=== PATIENT | male | born 1955 | race Caucasian/White ===

== ENCOUNTER → 2018-05-01 04:01 | Outpatient (CLI) | payer MEDICARE, SELFPAY ==
[2018-05-01 07:36] LABS: HCT 49.5 % (40.0-50.0); HGB 17.6 g/dL (13.5-17.5); Mean Corp. HGB Concentration 35.6 g/dL (32.0-36.0); Mean Corpuscular Hemoglobin 33.3 pg (27.0-33.0); Mean Corpuscular Volume 93.6 fL (80-95); Mean Platelet Volume 9.1 fL (8.0-11.0); Platelet Count 238 x1000/uL (130-400); RBC 5.29 m/cumm (4.50-6.00); RBC Distribution Width 12.7 % (11.8-14.1); White Blood Cell Count 4.59 k/cumm (4.4-10.8)
[2018-05-01 09:15] LABS: CREATININE 1.25 mg/dL (0.70-1.30); Cholesterol 198 mg/dL (50-200); Estimated GFR 58.92 (mL/min/1.73m2); Glucose 107 mg/dL (70-100); HDL Cholesterol 64 mg/dL (40-60); LDL CHOLESTEROL 112 mg/dL (<100); Potassium 5.2 mmol/L (3.5-5.1); Triglyceride 108 mg/dL (30-150)
== END ==
PROVIDERS: PCP Family Medicine; Visit Provider Family Medicine
DX: E74.39 Other disorders of intestinal carbohydrate absorption (principal); I10 Essential (primary) hypertension; D75.1 Secondary polycythemia; Z13.6 Encounter for screening for cardiovascular disorders
CPT/HCPCS: 36415; 80061; 82947; 83721; 85027; 82565; 84132

== ENCOUNTER 2018-06-05 02:27 | Outpatient (CLI) | payer MEDICARE, SELFPAY ==
[2018-06-05 10:19] LABS: Potassium 4.5 mmol/L (3.5-5.1)
[2018-06-06 14:12] LABS: Glucose 112 mg/dL (70-100)
== END 2018-06-05 02:47 ==
PROVIDERS: PCP Family Medicine; Visit Provider Family Medicine
DX: E87.5 Hyperkalemia (principal); E74.39 Other disorders of intestinal carbohydrate absorption
CPT/HCPCS: 36415; 82947; 84132

== ENCOUNTER 2018-12-02 14:09 | Outpatient (CLI) | payer MEDICARE, SELFPAY ==
[2018-12-02 14:47] LABS: Glucose 108 mg/dL (70-100)
[2018-12-02 14:55] LABS: Hemoglobin A1C 5.5 % (4.5-6.2)
== END 2018-12-02 14:29 ==
PROVIDERS: PCP Family Medicine; Visit Provider Family Medicine
DX: E74.39 Other disorders of intestinal carbohydrate absorption (principal); R73.01 Impaired fasting glucose
CPT/HCPCS: 36415; 82947; 83036

== ENCOUNTER 2019-03-22 00:33 | Outpatient (CLI) | payer MEDICARE, SELFPAY ==
[2019-03-25 12:53] LABS: Testosterone, Free 1.97 ng/dL (3.67-13.9); Testosterone, Total 141 ng/dL (240-950)
== END 2019-03-22 00:53 ==
PROVIDERS: PCP Family Medicine; Visit Provider Family Medicine
DX: R53.83 Other fatigue (principal)
CPT/HCPCS: 36415; 84402; 84403

== ENCOUNTER 2019-03-24 18:05 | Inpatient (IN) | payer MEDICARE, SELFPAY ==
[2019-03-24 18:11] VITALS: BP 130/85; PULSE 100; RESP 16; TEMP 36.7; O2SAT 95
--- NOTE | 2019-03-24 18:17 | DI.CT_ITS ---
SYMPTOM/DIAGNOSIS: LLQ PAIN, DARK TARRY STOOLS ABDOMEN AND PELVIC CT: The study was carried out with intravenous administration of 100 cc's of Omnipaque 350. The liver is normal. The gallbladder is intact. There are no stones or ductal dilatation. The pancreas, spleen and adrenals and kidneys are normal. There are a few scattered diverticula in the left colon. A focal area of wall thickening over a length of approximately 4 cm. is noted at the junction of the distal descending and sigmoid colon. A large amount of inflammatory reaction with indistinctness of the wall and colon is identified in this area. There is some free fluid extending into the left lower quadrant but there is nothing to suggest an abscess. There is no evidence of free air. The bladder is unremarkable. The reproductive organs are unremarkable save for slight enlargement of the prostate. There is no evidence of a mass or lymphadenopathy. No acute bony abnormality is seen. The soft tissues are unremarkable. SUMMARY: Findings consistent with diverticulitis involving the distal descending and sigmoid colon. There is no evidence of an abscess or perforation.
--- NOTE | 2019-03-24 18:21 | ED.GENADUL_ITS ---
Discharge Plan Disposition Patient Disposition: [facility] INPATIENT Condition: Stable Discharge Details Chief Complaint: Abd Prob Clinical Impression: Diverticulitis Admit Date/Time: 03/24/19 19:55 Admit Provider: Florencio Mayo Attending Provider: Florencio Mayo Primary Care Provider: Armond Hyatt ED Provider: Todd Rasmussen Discharge Data Discharge Date/Time-TO BE ENTERED AT DEPARTURE: 03/24/19 20:32 Medical Decision Making 63-year-old male with 2 to 3 days of severe left lower quadrant abdominal pain, with a mild component that has been lasting for the last 1 to 2 months. Exam demonstrates significant left lower quadrant pain. CT scan shows moderately severe acute diverticulitis. Without evidence of abscess or extraluminal air per virtual radiology. We have put in for Cipro and Flagyl. I discussed the case with Dr. Mayo, he agrees with the assessment and plan. The patient will be admitted for further antibiotic. I have extensively reviewed the treatment plan with the patient. I have addressed all patient concerns at this time. I have also discussed the plan with the admitting physician and they agree with the current assessment and plan and have agreed to assume responsibility for the patient. All parties demonstrate verbal understanding and agreement with our assessment and plan at this time. FINDINGS: Liver: Normal. No mass. Gallbladder and bile ducts: Normal. No calcified stones. No ductal dilation. Pancreas: Normal. No ductal dilation. Spleen: Normal. No splenomegaly. Adrenals: Normal. No mass. Kidneys and ureters: Normal. No hydronephrosis. Stomach and bowel: There are several diverticula in the left colon. There is focal wall thickening over a length of 4 cm at the junction of the descending and sigmoid colon. There is a large amount of inflammatory reaction with indistinctness of the wall of the colon in this area . there is tiny amount of free fluid extending into the left lower quadrant but no well-defined fluid collection to suggest an abscess. There is no distal extraluminal air. Vasculature: Normal. No abdominal aortic aneurysm. Lymph nodes: Normal. No enlarged lymph nodes. Bladder: Unremarkable as visualized. Reproductive: There is minimal enlargement of the prostate gland. Bones/joints: There are severe degenerative changes of facet joints the lower lumbar spine special L5-S1. There moderate degenerative changes lumbar spine most prominent L5-S1. There is mild spondylosis lower thoracic spine. Soft tissues: Unremarkable. IMPRESSION: Moderately severe acute diverticulitis at the junction of the descending and sigmoid colon without evidence of abscess or distal extraluminal air. Dictated and Authenticated by: Gregory Magaña MD. Ordering:ABISAI Brooks MD HPI General Date/Time Provider Initiated Documentation: 03/24/19 18:15 . HPI Narrative: This is a 63-year-old male with a past medical history of umbilical hernia repair who presents today for evaluation of left lower quadrant abdominal pain. Patient states that he has had mild left lower quadrant abdominal pain for the last 1 to 2 months, however over the last 1 to 2 days he has had notable significant worsening of his pain. Pain is worse with movement, palpation, walking, or even the bumps on the road. He denies fever or chills. He has not eaten anything over the last 24 hours secondary to lack of appetite. He does have nausea but denies any vomiting. He does admit to slightly darker stool than normal, but denies any tarry stool. He has no other complaints at this time. No other modifying factors. No other significant past surgical history. No IV or illicit drug use or pertinent family history. Related Data Home Medications Medication Instructions Recorded Confirmed cholecalciferol (vitamin D3) 1,000 unit PO DAILY 04/01/15 03/24/19 cyanocobalamin (vitamin B-12) 500 mcg PO DAILY 04/01/15 03/24/19 [Vitamin B-12] [id number] [One 1 ea PO DAILY 04/01/15 03/24/19 Daily For Men 50+ Adv Tab] aspirin [Aspir 81] 81 mg PO DAILY 04/17/15 03/24/19 glucosamine sulfate 2KCl 1 tab PO DAILY 11/28/16 03/24/19 indomethacin 50 mg PO tid prn #30 tab-cap 09/06/17 03/24/19 calcium carbonate [Calcium] 1,000 mg PO three times a week 04/29/18 03/24/19 duloxetine 60 mg capsule,delayed 60 mg PO DAILY #90 cap 05/30/18 03/24/19 release pantoprazole 40 mg tablet,delayed 40 mg PO DAILY PRN #90 tab-cap 07/29/18 03/24/19 release terbinafine HCl 250 mg tablet 250 mg PO DAILY #30 tab-cap 11/06/18 07/02/19 magnesium oxide 500 mg capsule 500 mg PO DAILY cap 10/28/18 03/24/19 ranitidine 150 mg tablet 150 mg PO QHS #90 tab 10/28/18 03/24/19 trazodone 100 mg tablet 50 - 100 mg PO HS #90 tab-cap 10/28/18 03/24/19 tamsulosin 0.4 mg capsule 0.4 mg PO DAILY #90 tab-cap 12/29/18 03/24/19 lisinopril 10 mg tablet 10 mg PO DAILY #90 tab-cap 03/13/19 03/24/19 metformin 500 mg tablet 500 mg PO BID tab 03/13/19 03/24/19 prednisone 20 mg tablet 40 mg PO DAILY #10 tab 03/13/19 03/18/19 sennosides 8.6 mg-docusate sodium 1 tab PO BID PRN #60 tab 03/13/19 03/24/19 50 mg tablet fluticasone propionate 50 1 spray NS BID #3 canister 03/18/19 03/24/19 mcg/actuation nasal spray,suspension oxycodone 5 mg tablet 5 mg PO q 6 h PRN #30 tab-cap MDD 03/24/19 03/24/19 1 tab Previous Rx's Medication Instructions Recorded indomethacin 50 mg PO tid prn #30 tab-cap 09/06/17 duloxetine 60 mg capsule,delayed 60 mg PO DAILY #90 cap 05/30/18 release pantoprazole 40 mg tablet,delayed 40 mg PO DAILY PRN #90 tab-cap 07/29/18 release terbinafine HCl 250 mg tablet 250 mg PO DAILY #30 tab-cap 07/29/18 ranitidine 150 mg tablet 150 mg PO QHS #90 tab 10/28/18 trazodone 100 mg tablet 50 - 100 mg PO HS #90 tab-cap 10/28/18 tamsulosin 0.4 mg capsule 0.4 mg PO DAILY #90 tab-cap 12/29/18 lisinopril 10 mg tablet 10 mg PO DAILY #90 tab-cap 03/13/19 prednisone 20 mg tablet 40 mg PO DAILY #10 tab 03/13/19 sennosides 8.6 mg-docusate sodium 1 tab PO BID PRN #60 tab 03/13/19 50 mg tablet fluticasone propionate 50 1 spray NS BID #3 canister 03/18/19 mcg/actuation nasal spray,suspension oxycodone 5 mg tablet 5 mg PO q 6 h PRN #30 tab-cap MDD 03/24/19 1 tab Allergies Allergy/AdvReac Type Severity Reaction Status Date / Time sertraline AdvReac Intermediate GI upset Unverified 03/24/19 18:14 venlafaxine AdvReac Intermediate MANN Unverified 03/24/19 18:14 morphine AdvReac Mild headache, Unverified 03/24/19 18:14 Tabs only General Stated Complaint: Abd Prob CHRIS: 3 Review of Systems Review of Systems All systems reviewed & are unremarkable except as noted in HPI and below PFSH Surgical History KNEE SURGERY Lobectomy (~1982) Repair of umbilical hernia Spinal Fusion (~2005) Tonsillectomy Family History Father Diabetes Heart disease Grandmother Leukemia Brother Epilepsy Diabetes Mother No problems noted. Social History Smoking/Tobacco Use Status: Current-Occasional Tobacco Type: cigarettes Alcohol Intake: current Alcohol Intake frequency: 3 or more drinks per day Alcohol type: beer and hard liquor Drug use: Never Do you feel safe at home: Yes Do you feel safe in your relationship?: Yes Exam Narrative Exam Narrative: 1.Const: Well-nourished, Well-developed, appearing stated age 2.Eyes: PERRL, no conjunctival injection, and symmetrical lids. 3.ENT: Atraumatic external nose and ears. Moist MM. Neck: Symmetric, trachea midline, No thyromegaly. 4.CVS: +S1/S2, No murmurs or gallops. Peripheral pulses 2+ and equal in all extremities. Brisk capillary refill in all extremities. 5.RESP: Unlabored respiratory effort. Clear to auscultation bilaterally. No wh eezes rales or rhonchi 6.GI: Soft, notable left lower quadrant abdominal tenderness, definite guarding, and rebound. Mild left CVA tenderness. No testicular tenderness, normal cremasteric reflex bilaterally. No penile pain. Rectal exam was performed with female nurse at bedside which showed no evidence of dark tarry stool, or blood. 7.MSK: Normocephalic/Atraumatic, Extremities w/o deformity or ttp No cyanosis or clubbing, Normal movement of all extremities 8.Skin: Warm, Dry. No rashes or lesions. 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 Sensation grossly intact, no focal neurologic deficits. 10.Psych: (AAO) x3. Appropriate mood and affect Course Vital Signs Temperature 36.7 C 03/24/19 18:11 Pulse 100 H 03/24/19 18:11 Respiratory Rate 16 03/24/19 18:11 Blood Pressure 130/85 03/24/19 18:11 Pulse Oximetry 95 03/24/19 18:11 Temperature 36.7 C 03/24/19 18:11 Temperature Source Temporal Artery Scan 03/24/19 18:11 Pulse 100 H 03/24/19 18:11 Respiratory Rate 16 03/24/19 18:11 Respiratory Effort Non-Labored 03/24/19 18:13 Blood Pressure 130/85 03/24/19 18:11 Blood Pressure Position Sitting 03/24/19 18:11 Pulse Oximetry 95 03/24/19 18:11 Oxygen Delivery Method Room Air 03/24/19 18:11 Oxygen Flow Rate 0 03/24/19 18:11 Pain Level 7 03/24/19 18:11
[2019-03-24] MEDS: Normal Saline 1,000 ML 1000 ML IV (18:34)
[2019-03-24 18:40] LABS: Abs Immature Grans 0.02 k/cumm (0.0-0.09); Absolute Basophil Count 0.03 k/cumm (0.0-0.2); Absolute Monocyte Count 1.77 k/cumm (0.11-0.7); Absolute Neutrophil Count 7.12 k/cumm (1.2-6.7); Basophils % 0.3; HCT 41.2 % (40.0-50.0); HGB 14.5 g/dL (13.5-17.5); Immature Grans % 0.2; Lymphocytes % 16.8; Mean Corp. HGB Concentration 35.2 g/dL (32.0-36.0); Mean Corpuscular Volume 93.6 fL (80-95); Mean Platelet Volume 9.3 fL (8.0-11.0); Monocytes % 16.5; Neutrophils % 66.2; Platelet Count 261 x1000/uL (130-400); RBC Distribution Width 11.8 % (11.8-14.1); White Blood Cell Count 10.74 k/cumm (4.4-10.8)
[2019-03-24] MEDS: Omnipaque 350 MG/ML 100 ML BTL IJ (18:49)
[2019-03-24 18:50] LABS: Diff Comment Diff Reviewed; RBC Morphology Normal
[2019-03-24] MEDS: MORPHine 10 MG/ML VIAL 4 MG IVP (18:53)
[2019-03-24] MEDS: Ondansetron 4 MG/2 ML VIAL IVP (18:53)
[2019-03-24 18:55] LABS: ALT 23 U/L (12-78); AST 14 U/L (15-37); Albumin 3.7 g/dL (3.4-5.0); Alkaline Phosphatase 89 U/L (46-116); Anion Gap 8.8 mmol/L (3-11); BUN 14 mg/dL (7-18); Bilirubin, Total 0.6 mg/dL (0.2-1.0); CO2 25.2 mmol/L (21.0-32.0); CREATININE 1.01 mg/dL (0.70-1.30); Calcium 8.7 mg/dL (8.5-10.1); Chloride 103 mmol/L (98-107); Glucose 110 mg/dL (70-100); Potassium 4.2 mmol/L (3.5-5.1); Sodium 137 mmol/L (136-145); Total Protein 7.1 g/dL (6.4-8.2)
[2019-03-24 18:55] LABS: Bilirubin Negative (Negative); Blood Negative (Negative); Clarity Clear (Clear); Glucose Negative (Negative); Ketones Negative (Negative); Leukocyte Esterase Negative (Negative); Nitrite Negative (Negative); Specific Gravity <= 1.005 (1.005-1.025); Urobilinogen 0.2 EU/dL (Up TO 0.2); pH 5.5 (5-8)
[2019-03-24 18:57] LABS: INR 0.9 (0.9-1.1); PTT Activated 22.3 sec (21.0-31.4); Prothrombin Time 9.2 sec (9.3-11.0)
--- NOTE | 2019-03-24 19:23 | DI.VRAD_ITS ---
EXAM: CT Abdomen and Pelvis With Contrast EXAM DATE/TIME: 03/24/2019 6:19 PM CLINICAL HISTORY: 63 years old, male; Abdominal pain; Localized; Left lower quadrant (llq); Prior surgery; Surgery date: 6+ months; Surgery type: Hernia repair years ago; Patient HX: Llq pain for a week, increasing TECHNIQUE: Imaging protocol: Axial computed tomography images of the abdomen and pelvis with intravenous contrast. Coronal and sagittal reformatted images were created and reviewed. Radiation optimization: All CT scans at this facility use at least one of these dose optimization techniques: automated exposure control; mA and/or kV adjustment per patient size (includes targeted exams where dose is matched to clinical indication); or iterative reconstruction. Contrast material: OMNIPAQUE 350; Contrast volume: 100 ml; Contrast route: IV; COMPARISON: CT ABD PELVIS WITH CONTRAST 04/12/2017 9:06 AM FINDINGS: Liver: Normal. No mass. Gallbladder and bile ducts: Normal. No calcified stones. No ductal dilation. Pancreas: Normal. No ductal dilation. Spleen: Normal. No splenomegaly. Adrenals: Normal. No mass. Kidneys and ureters: Normal. No hydronephrosis. Stomach and bowel: There are several diverticula in the left colon. There is focal wall thickening over a length of 4 cm at the junction of the descending and sigmoid colon. There is a large amount of inflammatory reaction with indistinctness of the wall of the colon in this area . there is tiny amount of free fluid extending into the left lower quadrant but no well-defined fluid collection to suggest an abscess. There is no distal extraluminal air. Vasculature: Normal. No abdominal aortic aneurysm. Lymph nodes: Normal. No enlarged lymph nodes. Bladder: Unremarkable as visualized. Reproductive: There is minimal enlargement of the prostate gland. Bones/joints: There are severe degenerative changes of facet joints the lower lumbar spine special L5-S1. There moderate degenerative changes lumbar spine most prominent L5-S1. There is mild spondylosis lower thoracic spine. Soft tissues: Unremarkable. IMPRESSION: Moderately severe acute diverticulitis at the junction of the descending and sigmoid colon without evidence of abscess or distal extraluminal air. SIGNIFICANT FINDING REPORT Dictated and Authenticated by: Gregory Magaña MD. Ordering:ABISAI Brooks MD
[2019-03-24] MEDS: CIPROFLOXACIN 400 MG/200 ML BAG 200 MG IVPB (19:39)
--- NOTE | 2019-03-24 19:54 | HPE_ITS ---
Date of service: 03/24/19 Time of Service: 19:46 Assessment and Plan (1) Diverticulitis: Current visit: Yes Status: Chronic Diverticulitis. Will treat with bowel rest, antibiotics and analgesics. otherwise usual meds as is (except the prn Oxycodone will be replaced by MS) History of Present Illness Chief Complaint: abdominal pain Narrative: 63 male reports one month of intermittent and generally mild LLQ pain, but becoming increasingly severe over past three days, along with loose stool (preceded by constipation). No fever, no radiation, +anorexia. Adds detail that bumps in road caused acute flare of pain. In ER diverticullitis noted, without evidence of abcess or perforation. Received 4 mg MS and started on Cipro/Flagyl. Admitted for further management. Review of Systems Review of Systems All systems reviewed & are unremarkable except as noted in HPI and below PFSH Surgical History KNEE SURGERY Lobectomy (~1982) Repair of umbilical hernia Spinal Fusion (~2005) Tonsillectomy Family History Father Diabetes Heart disease Grandmother Leukemia Brother Epilepsy Diabetes Mother No problems noted. Social History Smoking/Tobacco Use Status: Current-Occasional Tobacco Type: cigarettes Alcohol Intake: current Alcohol Intake frequency: 3 or more drinks per day Alcohol type: beer and hard liquor Drug use: Never Do you feel safe at home: Yes Do you feel safe in your relationship?: Yes Meds Home Medications Medication Instructions Recorded Confirmed Type cholecalciferol (vitamin D3) 1,000 unit PO DAILY 04/01/15 03/24/19 History cyanocobalamin (vitamin B-12) 500 mcg PO DAILY 04/01/15 03/24/19 History [Vitamin B-12] [id number] [One 1 ea PO DAILY 04/01/15 03/24/19 History Daily For Men 50+ Adv Tab] aspirin [Aspir 81] 81 mg PO DAILY 04/17/15 03/24/19 History glucosamine sulfate 2KCl 1 tab PO DAILY 11/28/16 03/24/19 History indomethacin 50 mg PO tid prn #30 tab-cap 09/06/17 03/24/19 Rx calcium carbonate [Calcium] 1,000 mg PO three times a week 04/29/18 03/24/19 History duloxetine 60 mg capsule,delayed 60 mg PO DAILY #90 cap 05/30/18 03/24/19 Rx release pantoprazole 40 mg tablet,delayed 40 mg PO DAILY PRN #90 tab-cap 07/29/18 03/24/19 Rx release terbinafine HCl 250 mg tablet 250 mg PO DAILY #30 tab-cap 07/29/18 03/24/19 Rx magnesium oxide 500 mg capsule 500 mg PO DAILY cap 10/28/18 03/24/19 History ranitidine 150 mg tablet 150 mg PO QHS #90 tab 10/28/18 03/24/19 Rx trazodone 100 mg tablet 50 - 100 mg PO HS #90 tab-cap 10/28/18 03/24/19 Rx tamsulosin 0.4 mg capsule 0.4 mg PO DAILY #90 tab-cap 12/29/18 03/24/19 Rx lisinopril 10 mg tablet 10 mg PO DAILY #90 tab-cap 03/13/19 03/24/19 Rx metformin 500 mg tablet 500 mg PO BID tab 03/13/19 03/24/19 History prednisone 20 mg tablet 40 mg PO DAILY #10 tab 03/13/19 03/18/19 Rx sennosides 8.6 mg-docusate sodium 1 tab PO BID PRN #60 tab 03/13/19 03/24/19 Rx 50 mg tablet fluticasone propionate 50 1 spray NS BID #3 canister 03/18/19 03/24/19 Rx mcg/actuation nasal spray,suspension oxycodone 5 mg tablet 5 mg PO q 6 h PRN #30 tab-cap MDD 03/24/19 03/24/19 Rx 1 tab Allergies Allergy/AdvReac Type Severity Reaction Status Date / Time sertraline AdvReac Intermediate GI upset Unverified 03/24/19 18:14 venlafaxine AdvReac Intermediate MANN Unverified 03/24/19 18:14 morphine AdvReac Mild headache, Unverified 03/24/19 18:14 Tabs only Exam Narrative Exam Narrative: 130/85, 100, 16, 36.7. HEENT unremarkable; neck supple; lungs clear; heart RRR w/o murmur; abdomen +BS, soft, moderate LLQ tenderness with pe rcussion rebound. /rectal deferred; extr no edema; neuro ox3, non-focal Results Labs : 03/24/19 18:30 03/24/19 18:30 Laboratory Results - last 24 hr 03/24/19 03/24/19 03/24/19 18:18 18:30 18:30 WBC 10.74 RBC 4.40 L Hgb 14.5 Hct 41.2 MCV 93.6 MCH 33.0 MCHC 35.2 RDW 11.8 Plt Count 261 MPV 9.3 Immature Gran % 0.2 Neutrophils % 66.2 Lymphocytes % 16.8 Monocytes % 16.5 Eosinophils % 0.0 Basophils % 0.3 Absolute Neutrophils 7.12 H Absolute Lymphocytes 1.80 Absolute Monocytes 1.77 H Absolute Eosinophils 0.00 Absolute Basophils 0.03 Differential Comment Diff reviewed RBC Morphology Normal PT INR APTT Sodium 137 Potassium 4.2 Chloride 103 Carbon Dioxide 25.2 Anion Gap 8.8 BUN 14 Creatinine 1.01 Estimated GFR/1.73 m2 >= 60.00 Glucose 110 H Calcium 8.7 Total Bilirubin 0.6 AST 14 L ALT 23 Alkaline Phosphatase 89 Total Protein 7.1 Albumin 3.7 Urine Color Yellow Urine Clarity Clear Urine pH 5.5 Ur Specific [place] <= 1.005 Urine Protein Negative Urine Ketones Negative Urine Blood Negative Urine Nitrite Negative Urine Bilirubin Negative Urine Urobilinogen 0.2 Ur Leukocyte Esterase Negative Urine Glucose Negative 03/24/19 18:30 WBC RBC Hgb Hct MCV MCH MCHC RDW Plt Count MPV Immature Gran % Neutrophils % Lymphocytes % Monocytes % Eosinophils % Basophils % Absolute Neutrophils Absolute Lymphocytes Absolute Monocytes Absolute Eosinophils Absolute Basophils Differential Comment RBC Morphology PT 9.2 L INR 0.9 APTT 22.3 Sodium Potassium Chloride Carbon Dioxide Anion Gap BUN Creatinine Estimated GFR/1.73 m2 Glucose Calcium Total Bilirubin AST ALT Alkaline Phosphatase Total Protein Albumin Urine Color Urine Clarity Urine pH Ur Specific [place] Urine Protein Urine Ketones Urine Blood Urine Nitrite Urine Bilirubin Urine Urobilinogen Ur Leukocyte Esterase Urine Glucose Last Vital Signs Temp 36.7 C 03/24/19 18:11 Pulse 100 H 03/24/19 18:11 Resp 16 03/24/19 18:11 BP 130/85 03/24/19 18:11 Pulse Ox 95 03/24/19 18:11
[2019-03-24 20:06] VITALS: O2SAT 91
[2019-03-24 20:10] VITALS: O2SAT 95
[2019-03-24 20:13] VITALS: BP 120/73; PULSE 84; O2SAT 94
[2019-03-24 20:28] VITALS: BP 120/73; PULSE 84; RESP 16; TEMP 36.7; O2SAT 94
[2019-03-24 20:42] VITALS: BP 124/79; PULSE 87; RESP 18; TEMP 37.1; O2SAT 95
[2019-03-24] MEDS: metroNIDAZOLE 500 MG/100 ML BAG 100 MG IVPB (21:05)
[2019-03-24] MEDS: Lactated Ringers 1,000 ML 150 ML IV (22:16)
[2019-03-24] MEDS: traZODone 50 MG TAB PO (22:16)
[2019-03-25] MEDS: metroNIDAZOLE 500 MG/100 ML BAG 100 MG IVPB ×4 (03:43→22:21)
[2019-03-25 05:14] VITALS: BP 138/80; PULSE 85; RESP 20; TEMP 37.2; O2SAT 98
[2019-03-25] MEDS: Lactated Ringers 1,000 ML 150 ML IV ×2 (06:39→15:47)
[2019-03-25 07:50] VITALS: BP 135/80; PULSE 98; RESP 18; TEMP 37.3; O2SAT 96
[2019-03-25] MEDS: Glucosamine/Chondroitin CAP 1 CAP PO (07:58)
[2019-03-25] MEDS: Aspirin E.C. 81 MG TABEC PO (07:58)
[2019-03-25] MEDS: Lisinopril 10 MG TAB PO (07:58)
[2019-03-25] MEDS: Magnesium Oxide 400 MG TAB PO (07:58)
[2019-03-25] MEDS: Tamsulosin 0.4 MG CAPCR PO (07:58)
[2019-03-25] MEDS: DULoxetine 30 MG CAP 60 MG PO (07:58)
[2019-03-25] MEDS: Cholecalciferol (Vitamin D3) 1,000 UNIT TAB 1000 UNITS PO (07:58)
[2019-03-25] MEDS: Cyanocobalamin 500 MCG TAB PO (07:58)
[2019-03-25] MEDS: CIPROFLOXACIN 400 MG/200 ML BAG 200 MG IVPB ×2 (07:59→19:58)
[2019-03-25] MEDS: Fluticasone NASAL SPRAY 16 GM BTL NS ×2 (08:02→19:59)
[2019-03-25] MEDS: Normal Saline Flush 10 ML SYR IVP ×4 (08:16→19:59)
[2019-03-25 11:29] LABS: Abs Immature Grans 0.01 k/cumm (0.0-0.09); Absolute Basophil Count 0.01 k/cumm (0.0-0.2); Absolute Lymphocyte Count 0.79 k/cumm (1.2-3.4); Absolute Monocyte Count 1.48 k/cumm (0.11-0.7); Basophils % 0.1; HCT 38.4 % (40.0-50.0); HGB 13.4 g/dL (13.5-17.5); Immature Grans % 0.1; Lymphocytes % 11.6; Mean Corp. HGB Concentration 34.9 g/dL (32.0-36.0); Mean Corpuscular Hemoglobin 33.4 pg (27.0-33.0); Mean Corpuscular Volume 95.8 fL (80-95); Mean Platelet Volume 9.2 fL (8.0-11.0); Monocytes % 21.8; Neutrophils % 66.4; Platelet Count 185 x1000/uL (130-400); RBC 4.01 m/cumm (4.50-6.00); RBC Distribution Width 12.1 % (11.8-14.1); White Blood Cell Count 6.79 k/cumm (4.4-10.8)
[2019-03-25 11:30] LABS: Absolute Neutrophil Count 4.51 k/cumm (1.2-6.7)
[2019-03-25 11:37] LABS: Anion Gap 9.7 mmol/L (3-11); BUN 11 mg/dL (7-18); CO2 26.3 mmol/L (21.0-32.0); CREATININE 0.94 mg/dL (0.70-1.30); Calcium 8.3 mg/dL (8.5-10.1); Chloride 102 mmol/L (98-107); Glucose 108 mg/dL (70-100); Magnesium 1.8 mg/dL (1.8-2.4); Potassium 3.9 mmol/L (3.5-5.1); Sodium 138 mmol/L (136-145)
--- NOTE | 2019-03-25 14:13 | CHAPLAIN ---
Drew was resting in bed when I visited. He said he is beginning to feel better. I introduced myself and explained my role. He said he has had similar medical issues before, but not to this extent. His mom and aunt were in earlier to visit, and he expects his girlfriend to be in later.
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
--- NOTE | 2019-03-25 15:20 | SCONE_ITS ---
Date of service: 03/25/19 Time of Service: 15:06 Assessment and Plan (1) Diverticulitis: Current visit: No Status: Chronic A\\ Sigmoid Diverticulitis without abscess or perforation Patient has had a few liquid stools but not passing flatus and still pretty tender P\\ Recommend waiting until tomorrow in am to start clears as long as he doesn't have increase in pain. Once he is tolerating a clear liquid diet I would advance to a soft, low fiber diet (skip the full liquids). Treat with antibiotics for 14 days Follwo up with me in the office in 3 weeks to discuss colonoscopy and make sure he is doing well once he stops antibiotics He should be discharged on low fiber diet and stool softeners Thank you for this consult. We will follow along with you History of Present Illness Chief Complaint: Diverticulitis Narrative: Mr. Goel is a pleasant 63 year old male who started having some aching LLQ abdominal pain about 1 week ago. in the 3 days prior to coming to the ER the pain progressivley got worse and so he came to the ER. CT scan in the ER showed Diverticulitis without abscess or perforation. The patient was admitted by the hospitalist for IV antibiotics. We have been asked to consult. Drew tells me that he had a bout of pain like this before and he was given some pills by his Dr. and the pain went away. His last colonoscopy was over 10 years ago and was normal as far as he can recall. Records show that his last colonoscopy was in 2006 and he had a tubular adenoma). He can't remember if he was told that he had diverticula. He does suffer from intermittent constipation due to the pain medications that he takes for his back. He has taken a stool softener in the past, but he can't remember the name of it. He denies any Vomiting. He has had some nausea. He denies any melena or hematochezia. Today he is feeling slightly better. pain has lessened a little. He has had a few small liquid stools but no flatus. Consults Consult date: 03/25/19 Requesting physician: Ayesha Barth Review of Systems Constitutional Denies chills, Denies fatigue, Denies fever(s), Denies malaise and Denies night sweats Eyes Denies change in vision Cardiovascular Denies chest pain, Denies chest pain at rest, Denies chest pain with activity, D enies irregular heart rhythm, Denies palpitations, Denies dyspnea and Denies dyspnea on exertion Respiratory Denies chest congestion, Denies cough, Denies hemoptysis, Denies dyspnea and Denies dyspnea on exertion Gastrointestinal Reports as per HPI Genitourinary Denies hematuria and Denies dysuria Endocrine Denies cold intolerance, Denies fatigue, Denies heat intolerance and Denies palpitations Hematologic/Lymphatic Denies easy bleeding, Denies easy bruising and Denies lymphadenopathy [facility] Medical History Tick bite (Acute) Back pain (Chronic) Elevated blood-pressure reading without diagnosis of hypertension (Acute 08/25/07) Chronic lower back pain (Acute) Vitamin D deficiency (Acute 03/07/15) Urgency of urination (Acute 03/13/16) Pulmonary sarcoidosis (Acute 03/07/15) Post traumatic stress disorder (Acute) [place]-Schlatter's disease (Acute) Lumbago (Acute) Insomnia (Acute 03/07/15) Injury of head (Acute 08/22/86) Impaired fasting glucose (Acute) Hyperlipemia (Acute 03/07/15) Hepatitis A (Acute 03/07/15) Essential hypertension (Acute) Gastroesophageal reflux disease (Chronic 03/07/15) Erectile dysfunction (Acute 03/07/15) Depression (Acute) Degenerative arthritis (Acute) Colon polyp (Acute 08/22/07) Asthma (Acute 01/17/09) Acid indigestion (Acute) Surgical History History of knee surgery (Acute) History of umbilical hernia repair (Acute) Status post cervical spinal arthrodesis (Acute) Status post lobectomy of lung (Acute) Status post tonsillectomy (Acute) KNEE SURGERY Lobectomy (~1982) Repair of umbilical hernia Spinal Fusion (~2005) Tonsillectomy Family History Father Diabetes Heart disease Grandmother Leukemia Brother Epilepsy Diabetes Mother No problems noted. Social History Smoking/Tobacco Use Status: Current-Occasional Tobacco Type: cigarettes Alcohol Intake: current Alcohol Intake frequency: 3 or more drinks per day Alcohol type: beer and hard liquor Drug use: Never Do you feel safe at home: Yes Do you feel safe in your relationship?: Yes Exam Const General: cooperative, comfortable and no acute distress Nutritional Appearance: overweight Orientation: alert and oriented x3 HENMT Head: normocephalic and atraumatic Eyes Pupils: PERRL Resp Effort & Inspection: normal respiratory effort Auscultation: clear to auscultation bilaterally Cardio Rate: regular rate Rhythm: regular rhythm Heart Sounds: no gallops, no murmurs and no rubs GI Inspection: normal to inspection Palpation: soft, no hepatosplenomegaly and tender (LLQ and suprapubic with guarding. No rebound) Auscultation: normal bowel sounds Rectal Exam: deferred Results Last Vital Signs Temp 99.1 F 03/25/19 07:50 Pulse 98 H 03/25/19 07:50 Resp 18 03/25/19 07:50 BP 135/80 03/25/19 07:50 Pulse Ox 96 03/25/19 07:50 Labs : 03/25/19 11:20 03/25/19 11:20 Laboratory Results - last 24 hr 03/24/19 03/24/19 03/24/19 18:18 18:30 18:30 WBC 10.74 RBC 4.40 L Hgb 14.5 Hct 41.2 MCV 93.6 MCH 33.0 MCHC 35.2 RDW 11.8 Plt Count 261 MPV 9.3 Immature Gran % 0.2 Neutrophils % 66.2 Lymphocytes % 16.8 Monocytes % 16.5 Eosinophils % 0.0 Basophils % 0.3 Absolute Neutrophils 7.12 H Absolute Lymphocytes 1.80 Absolute Monocytes 1.77 H Absolute Eosinophils 0.00 Absolute Basophils 0.03 Differential Comment Diff reviewed RBC Morphology Normal PT INR APTT Sodium 137 Potassium 4.2 Chloride 103 Carbon Dioxide 25.2 Anion Gap 8.8 BUN 14 Creatinine 1.01 Estimated GFR/1.73 m2 >= 60.00 Glucose 110 H Calcium 8.7 Magnesium Total Bilirubin 0.6 AST 14 L ALT 23 Alkaline Phosphatase 89 Total Protein 7.1 Albumin 3.7 Urine Color Yellow Urine Clarity Clear Urine pH 5.5 Ur Specific [place] <= 1.005 Urine Protein Negative Urine Ketones Negative Urine Blood Negative Urine Nitrite Negative Urine Bilirubin Negative Urine Urobilinogen 0.2 Ur Leukocyte Esterase Negative Urine Glucose Negative 03/24/19 03/25/19 03/25/19 18:30 11:20 11:20 WBC 6.79 D RBC 4.01 L Hgb 13.4 L Hct 38.4 L MCV 95.8 H MCH 33.4 H MCHC 34.9 RDW 12.1 Plt Count 185 MPV 9.2 Immature Gran % 0.1 Neutrophils % 66.4 Lymphocytes % 11.6 Monocytes % 21.8 Eosinophils % 0.0 Basophils % 0.1 Absolute Neutrophils 4.51 Absolute Lymphocytes 0.79 L Absolute Monocytes 1.48 H Absolute Eosinophils 0.00 Absolute Basophils 0.01 Differential Comment RBC Morphology PT 9.2 L INR 0.9 APTT 22.3 Sodium 138 Potassium 3.9 Chloride 102 Carbon Dioxide 26.3 Anion Gap 9.7 BUN 11 Creatinine 0.94 Estimated GFR/1.73 m2 >= 60.00 Glucose 108 H Calcium 8.3 L Magnesium 1.8 Total Bilirubin AST ALT Alkaline Phosphatase Total Protein Albumin Urine Color Urine Clarity Urine pH Ur Specific [place] Urine Protein Urine Ketones Urine Blood Urine Nitrite Urine Bilirubin Urine Urobilinogen Ur Leukocyte Esterase Urine Glucose
[2019-03-25 15:43] VITALS: BP 130/79; PULSE 88; RESP 18; TEMP 37.4; O2SAT 98
--- NOTE | 2019-03-25 17:04 | PHARADMIT ---
Admission Pharmacy Clinical Review DIVERTICULITIS Code Status Full Code Current Weight 95.254 kg Renally Cleared and Narrow Therapeutic Index Meds CrCl~77ml/min QTc Value / Action Taken BP Control, Fever BP 130/79 Afebrile pain zero Electrolytes reviewed WNL DVT Prophylaxis NONE at this time Opiate Usage / Scheduled Bowel Regimen Ordered MS IVP-no bowel meds at this time, no BM Plt/SCr for Heparin / Enoxaparin Plt 185 SCr 0.94 INR for Warfarin NR 0.9 H/H stable, WBC/Bands H/H 13.4/38.4 WBC 6.79 Antibiotic appropriateness Cipro/Flagyl IV x14 days Cultures and Sensitivities Surgical ABX d/c within 24 hr DM control / Insulin Dosing BG 108 Heart Failure (Check EF%) (LEANDRO's, B-Block, Diuretics) IV to PO Switch Cipro/Flagyl to oral likely at discharge Home Meds Reviewed Has both Ranitidine and Protonix ordered off home med list Home Meds Not Ordered Calcium, Indocin, Metformin, OxyIR, Senna, Terbinafine Comments Surgical consult...will advance diet, currently NPO
--- NOTE | 2019-03-25 17:56 | W.PM.PROGNOT ---
Date of Service Date of service: 03/25/19 Time of Service: 17:56 Assessment and Plan (1) Diverticulitis: Current visit: No Status: Chronic Already starting to improve. Surgery consult appreciated. Because the patient started passing flatus, I will permit for him to have some linda radha tonight. Otherwise, to remain NPO. Contine cipro, flagyl, IVF. Will need outpatient colonoscopy (2) Chronic pain: Current visit: No Status: Chronic On IV morphine at this time. Normally on oxycodone (3) Pulmonary sarcoidosis: Current visit: No Status: Chronic Follow up as outpatient (4) Essential hypertension: Current visit: Yes Status: Acute No change in tx (5) Discharge planning issues: Current visit: Yes Status: Acute Full code Continues to require hospitalization (6) DVT prophylaxis: Current visit: Yes Status: Acute Lovenox Subjective Interval history since last seen: States he feels a little dizzy from not eating. Continues to report LLQ pain, but it is a lot better, just soreness mostly. States he has had BM's and started passing flatus. Denies chest pain, shortness of breath, nausea, vomiting. Exam Narrative Exam Narrative: General: very pleasant middle-aged male, A&Ox3, NAD HEENT: EOMI, MMM Heart: RRR, no m/r/g Lungs: CTAB Abdomen: soft, tender in LLQ, no rebound, + BS Extremities: No e/c/c BLE's Objective Objective Clinical Data: Abnormal lab results 03/24/19 03/24/19 03/24/19 Range/Units 18:30 18:30 18:30 RBC 4.40 L (4.50-6.00) m/cumm Hgb (13.5-17.5) g/dL Hct (40.0-50.0) % MCV (80-95) fL MCH (27.0-33.0) pg Absolute Neutrophils 7.12 H (1.2-6.7) k/cumm Absolute Lymphocytes (1.2-3.4) k/cumm Absolute Monocytes 1.77 H (0.11-0.7) k/cumm PT 9.2 L (9.3-11.0) sec Glucose 110 H (70-100) mg/dL Calcium (8.5-10.1) mg/dL AST 14 L (15-37) U/L 03/25/19 03/25/19 Range/Units 11:20 11:20 RBC 4.01 L (4.50-6.00) m/cumm Hgb 13.4 L (13.5-17.5) g/dL Hct 38.4 L (40.0-50.0) % MCV 95.8 H (80-95) fL MCH 33.4 H (27.0-33.0) pg Absolute Neutrophils (1.2-6.7) k/cumm Absolute Lymphocytes 0.79 L (1.2-3.4) k/cumm Absolute Monocytes 1.48 H (0.11-0.7) k/cumm PT (9.3-11.0) sec Glucose 108 H (70-100) mg/dL Calcium 8.3 L (8.5-10.1) mg/dL AST (15-37) U/L Vital Signs Temperature 37.4 C 03/25/19 15:43 Temperature Source Tympanic 03/25/19 15:43 Pulse 88 03/25/19 15:43 Pulse Rhythm Regular 03/25/19 07:50 Respiratory Rate 18 03/25/19 15:43 Respiratory Effort 03/25/19 07:50 Respiratory Depth Normal 03/25/19 07:50 Respiratory Pattern Normal 03/25/19 07:50 Blood Pressure 130/79 03/25/19 15:43 Blood Pressure Mean 83 03/24/19 20:13 Blood Pressure Position Sitting 03/24/19 18:11 Pulse Oximetry 98 03/25/19 15:43 Oxygen Delivery Method Room Air 03/25/19 15:43 Oxygen Flow Rate 0 03/25/19 15:43 Pain Level 4 03/25/19 16:00 Intake & Output 03/24/19 03/25/19 03/25/19 23:59 11:59 23:59 Intake Total 1300 / 1300 1400.0 / 2400.0 1000 / 2400.0 Balance 1300 / 1300 1400.0 / 2400.0 1000 / 2400.0 Weight 95.254 kg Intake: IV 1300 / 1300 1400.0 / 2400.0 1000 / 2400.0 Other: Urine Color Yellow Urine Appearance Clear Urine Odor Normal Voiding Methods Toilet Laboratory Results WBC 6.79 k/cumm (4.4-10.8) D 03/25/19 11:20 RBC 4.01 m/cumm (4.50-6.00) L 03/25/19 11:20 Hgb 13.4 g/dL (13.5-17.5) L 03/25/19 11:20 Hct 38.4 % (40.0-50.0) L 03/25/19 11:20 MCV 95.8 fL (80-95) H 03/25/19 11:20 MCH 33.4 pg (27.0-33.0) H 03/25/19 11:20 MCHC 34.9 g/dL (32.0-36.0) 03/25/19 11:20 RDW 12.1 % (11.8-14.1) 03/25/19 11:20 Plt Count 185 x1000/uL (130-400) 03/25/19 11:20 MPV 9.2 fL (8.0-11.0) 03/25/19 11:20 Immature Gran % 0.1 03/25/19 11:20 Neutrophils % 66.4 03/25/19 11:20 Lymphocytes % 11.6 03/25/19 11:20 Monocytes % 21.8 03/25/19 11:20 Eosinophils % 0.0 03/25/19 11:20 Basophils % 0.1 03/25/19 11:20 Absolute Neutrophils 4.51 k/cumm (1.2-6.7) 03/25/19 11:20 Absolute Lymphocytes 0.79 k/cumm (1.2-3.4) L 03/25/19 11:20 Absolute Monocytes 1.48 k/cumm (0.11-0.7) H 03/25/19 11:20 Absolute Eosinophils 0.00 k/cumm (0.0-0.7) 03/25/19 11:20 Absolute Basophils 0.01 k/cumm (0.0-0.2) 03/25/19 11:20 Differential Comment Diff reviewed 03/24/19 18:30 RBC Morphology Normal 03/24/19 18:30 PT 9.2 sec (9.3-11.0) L 03/24/19 18:30 INR 0.9 (0.9-1.1) 03/24/19 18:30 APTT 22.3 sec (21.0-31.4) 03/24/19 18:30 Sodium 138 mmol/L (136-145) 03/25/19 11:20 Potassium 3.9 mmol/L (3.5-5.1) 03/25/19 11:20 Chloride 102 mmol/L (98-107) 03/25/19 11:20 Carbon Dioxide 26.3 mmol/L (21.0-32.0) 03/25/19 11:20 Anion Gap 9.7 mmol/L (3-11) 03/25/19 11:20 BUN 11 mg/dL (7-18) 03/25/19 11:20 Creatinine 0.94 mg/dL (0.70-1.30) 03/25/19 11:20 Estimated GFR/1.73 m2 >= 60.00 (mL/min/1.73m2) 03/25/19 11:20 Glucose 108 mg/dL (70-100) H 03/25/19 11:20 Calcium 8.3 mg/dL (8.5-10.1) L 03/25/19 11:20 Magnesium 1.8 mg/dL (1.8-2.4) 03/25/19 11:20 Total Bilirubin 0.6 mg/dL (0.2-1.0) 03/24/19 18:30 AST 14 U/L (15-37) L 03/24/19 18:30 ALT 23 U/L (12-78) 03/24/19 18:30 Alkaline Phosphatase 89 U/L (46-116) 03/24/19 18:30 Total Protein 7.1 g/dL (6.4-8.2) 03/24/19 18:30 Albumin 3.7 g/dL (3.4-5.0) 03/24/19 18:30 Urine Color Yellow (Yellow) 03/24/19 18:18 Urine Clarity Clear (Clear) 03/24/19 18:18 Urine pH 5.5 (5-8) 03/24/19 18:18 Ur Specific [place] <= 1.005 (1.005-1.025) 03/24/19 18:18 Urine Protein Negative mg/dL (Negative) 03/24/19 18:18 Urine Ketones Negative mg/dL (Negative) 03/24/19 18:18 Urine Blood Negative (Negative) 03/24/19 18:18 Urine Nitrite Negative (Negative) 03/24/19 18:18 Urine Bilirubin Negative (Negative) 03/24/19 18:18 Urine Urobilinogen 0.2 EU/dL (Up TO 0.2) 03/24/19 18:18 Ur Leukocyte Esterase Negative (Negative) 03/24/19 18:18 Urine Glucose Negative mg/dL (Negative) 03/24/19 18:18
[2019-03-25] MEDS: Enoxaparin 40 MG/0.4 ML SYR SC (18:14)
[2019-03-25] MEDS: DEXTROSE 5%-LACTATED RINGERS 1,000 ML 125 ML IV (19:57)
[2019-03-25] MEDS: traZODone 50 MG TAB PO (22:20)
[2019-03-26] MEDS: metroNIDAZOLE 500 MG/100 ML BAG 100 MG IVPB ×2 (03:43→09:53)
[2019-03-26 03:48] VITALS: BP 115/75; PULSE 77; RESP 19; TEMP 36.7; O2SAT 98
[2019-03-26] MEDS: DEXTROSE 5%-LACTATED RINGERS 1,000 ML 125 ML IV (05:59)
[2019-03-26 07:12] LABS: Absolute Basophil Count 0.01 k/cumm (0.0-0.2); Absolute Eosinophil Count 0.06 k/cumm (0.0-0.7); Absolute Lymphocyte Count 0.97 k/cumm (1.2-3.4); Absolute Monocyte Count 1.01 k/cumm (0.11-0.7); Absolute Neutrophil Count 4.21 k/cumm (1.2-6.7); Basophils % 0.2; HCT 37.5 % (40.0-50.0); HGB 12.6 g/dL (13.5-17.5); Lymphocytes % 15.5; Mean Corp. HGB Concentration 33.6 g/dL (32.0-36.0); Mean Corpuscular Hemoglobin 32.6 pg (27.0-33.0); Mean Corpuscular Volume 97.2 fL (80-95); Mean Platelet Volume 9.5 fL (8.0-11.0); Monocytes % 16.1; Neutrophils % 67.2; Platelet Count 196 x1000/uL (130-400); RBC 3.86 m/cumm (4.50-6.00); RBC Distribution Width 12.1 % (11.8-14.1); White Blood Cell Count 6.26 k/cumm (4.4-10.8)
[2019-03-26 07:17] VITALS: BP 117/77; PULSE 81; RESP 20; TEMP 36.7; O2SAT 99
[2019-03-26 07:24] LABS: Anion Gap 5.5 mmol/L (3-11); BUN 8 mg/dL (7-18); CO2 31.5 mmol/L (21.0-32.0); CREATININE 0.86 mg/dL (0.70-1.30); Calcium 8.2 mg/dL (8.5-10.1); Chloride 104 mmol/L (98-107); Glucose 153 mg/dL (70-100); Potassium 4.3 mmol/L (3.5-5.1); Sodium 141 mmol/L (136-145)
[2019-03-26] MEDS: Tamsulosin 0.4 MG CAPCR PO (08:39)
[2019-03-26] MEDS: Cyanocobalamin 500 MCG TAB PO (08:39)
[2019-03-26] MEDS: Glucosamine/Chondroitin CAP 1 CAP PO (08:39)
[2019-03-26] MEDS: CIPROFLOXACIN 400 MG/200 ML BAG 200 MG IVPB (08:39)
[2019-03-26] MEDS: Aspirin E.C. 81 MG TABEC PO (08:39)
[2019-03-26] MEDS: DULoxetine 30 MG CAP 60 MG PO (08:39)
[2019-03-26] MEDS: Lisinopril 10 MG TAB PO (08:39)
[2019-03-26] MEDS: Cholecalciferol (Vitamin D3) 1,000 UNIT TAB 1000 UNITS PO (08:39)
[2019-03-26] MEDS: Magnesium Oxide 400 MG TAB PO (08:40)
[2019-03-26] MEDS: Normal Saline Flush 10 ML SYR IVP (08:40)
[2019-03-26] MEDS: Fluticasone NASAL SPRAY 16 GM BTL NS (08:48)
--- NOTE | 2019-03-26 10:47 | W.PM.PROGNOT ---
Date of Service Date of service: 03/26/19 Time of Service: 10:47 Assessment and Plan (1) Diverticulitis: Current visit: No Status: Chronic He is improving, labs look good, no fever Will start soft diet Okay to discharge when pain controlled and tolerating PO Subjective Interval history since last seen: Feels much better Tolerating clears Pain minimal Passing flatus but no stool yet. Has not eating since Saturday Exam Narrative Exam Narrative: Appears comfortable Mild LLQ tenderness to palpation No distension or peritonitis Objective Objective Clinical Data: Abnormal lab results 03/25/19 03/25/19 03/26/19 Range/Units 11:20 11:20 06:58 RBC 4.01 L (4.50-6.00) m/cumm Hgb 13.4 L (13.5-17.5) g/dL Hct 38.4 L (40.0-50.0) % MCV 95.8 H (80-95) fL MCH 33.4 H (27.0-33.0) pg Absolute Lymphocytes 0.79 L (1.2-3.4) k/cumm Absolute Monocytes 1.48 H (0.11-0.7) k/cumm Glucose 108 H 153 H (70-100) mg/dL Calcium 8.3 L 8.2 L (8.5-10.1) mg/dL 03/26/19 Range/Units 06:58 RBC 3.86 L (4.50-6.00) m/cumm Hgb 12.6 L (13.5-17.5) g/dL Hct 37.5 L (40.0-50.0) % MCV 97.2 H (80-95) fL MCH (27.0-33.0) pg Absolute Lymphocytes 0.97 L (1.2-3.4) k/cumm Absolute Monocytes 1.01 H (0.11-0.7) k/cumm Glucose (70-100) mg/dL Calcium (8.5-10.1) mg/dL Vital Signs Temperature 98.1 F 03/26/19 07:17 Temperature Source Tympanic 03/26/19 07:17 Pulse 81 03/26/19 07:17 Pulse Rhythm Regular 03/26/19 09:25 Respiratory Rate 20 03/26/19 07:17 Respiratory Effort 03/26/19 09:25 Respiratory Depth Normal 03/26/19 09:25 Respiratory Pattern Normal 03/26/19 09:25 Blood Pressure 117/77 03/26/19 07:17 Blood Pressure Mean 83 03/24/19 20:13 Blood Pressure Position Sitting 03/24/19 18:11 Pulse Oximetry 99 03/26/19 07:17 Oxygen Delivery Method Room Air 03/26/19 07:17 Oxygen Flow Rate 0 03/26/19 07:17 Pain Level 5 03/26/19 07:17 Intake & Output 03/25/19 03/25/19 03/26/19 11:59 23:59 11:59 Intake Total 1400.0 / 2990.417 1590.417 / 2990.417 1150.000 / 1150.000 Balance 1400.0 / 2990.417 1590.417 / 2990.417 1150.000 / 1150.000 Weight 208 lb 1.862 oz Intake: IV 1400.0 / 2990.417 1590.417 / 2990.417 910.000 / 910.000 Oral 240 / 240 Other: Urine Color Yellow Yellow Urine Appearance Clear Clear Clear Urine Odor Normal Normal Voiding Methods Toilet Toilet Laboratory Results WBC 6.26 k/cumm (4.4-10.8) 03/26/19 06:58 RBC 3.86 m/cumm (4.50-6.00) L 03/26/19 06:58 Hgb 12.6 g/dL (13.5-17.5) L 03/26/19 06:58 Hct 37.5 % (40.0-50.0) L 03/26/19 06:58 MCV 97.2 fL (80-95) H 03/26/19 06:58 MCH 32.6 pg (27.0-33.0) 03/26/19 06:58 MCHC 33.6 g/dL (32.0-36.0) 03/26/19 06:58 RDW 12.1 % (11.8-14.1) 03/26/19 06:58 Plt Count 196 x1000/uL (130-400) 03/26/19 06:58 MPV 9.5 fL (8.0-11.0) 03/26/19 06:58 Immature Gran % 0.0 03/26/19 06:58 Neutrophils % 67.2 03/26/19 06:58 Lymphocytes % 15.5 03/26/19 06:58 Monocytes % 16.1 03/26/19 06:58 Eosinophils % 1.0 03/26/19 06:58 Basophils % 0.2 03/26/19 06:58 Absolute Neutrophils 4.21 k/cumm (1.2-6.7) 03/26/19 06:58 Absolute Lymphocytes 0.97 k/cumm (1.2-3.4) L 03/26/19 06:58 Absolute Monocytes 1.01 k/cumm (0.11-0.7) H 03/26/19 06:58 Absolute Eosinophils 0.06 k/cumm (0.0-0.7) 03/26/19 06:58 Absolute Basophils 0.01 k/cumm (0.0-0.2) 03/26/19 06:58 Differential Comment Diff reviewed 03/24/19 18:30 RBC Morphology Normal 03/24/19 18:30 PT 9.2 sec (9.3-11.0) L 03/24/19 18:30 INR 0.9 (0.9-1.1) 03/24/19 18:30 APTT 22.3 sec (21.0-31.4) 03/24/19 18:30 Sodium 141 mmol/L (136-145) 03/26/19 06:58 Potassium 4.3 mmol/L (3.5-5.1) 03/26/19 06:58 Chloride 104 mmol/L (98-107) 03/26/19 06:58 Carbon Dioxide 31.5 mmol/L (21.0-32.0) 03/26/19 06:58 Anion Gap 5.5 mmol/L (3-11) 03/26/19 06:58 BUN 8 mg/dL (7-18) 03/26/19 06:58 Creatinine 0.86 mg/dL (0.70-1.30) 03/26/19 06:58 Estimated GFR/1.73 m2 >= 60.00 (mL/min/1.73m2) 03/26/19 06:58 Glucose 153 mg/dL (70-100) H 03/26/19 06:58 Calcium 8.2 mg/dL (8.5-10.1) L 03/26/19 06:58 Magnesium 2.0 mg/dL (1.8-2.4) 03/26/19 06:58 Total Bilirubin 0.6 mg/dL (0.2-1.0) 03/24/19 18:30 AST 14 U/L (15-37) L 03/24/19 18:30 ALT 23 U/L (12-78) 03/24/19 18:30 Alkaline Phosphatase 89 U/L (46-116) 03/24/19 18:30 Total Protein 7.1 g/dL (6.4-8.2) 03/24/19 18:30 Albumin 3.7 g/dL (3.4-5.0) 03/24/19 18:30 Urine Color Yellow (Yellow) 03/24/19 18:18 Urine Clarity Clear (Clear) 03/24/19 18:18 Urine pH 5.5 (5-8) 03/24/19 18:18 Ur Specific [place] <= 1.005 (1.005-1.025) 03/24/19 18:18 Urine Protein Negative mg/dL (Negative) 03/24/19 18:18 Urine Ketones Negative mg/dL (Negative) 03/24/19 18:18 Urine Blood Negative (Negative) 03/24/19 18:18 Urine Nitrite Negative (Negative) 03/24/19 18:18 Urine Bilirubin Negative (Negative) 03/24/19 18:18 Urine Urobilinogen 0.2 EU/dL (Up TO 0.2) 03/24/19 18:18 Ur Leukocyte Esterase Negative (Negative) 03/24/19 18:18 Urine Glucose Negative mg/dL (Negative) 03/24/19 18:18
--- NOTE | 2019-03-26 14:28 | PDOC.CMPRO ---
- If Service Date Differs Date of service: 03/26/19 Time of Service: 14:28 Care Management Progress Note S/O: Drew remains inpatient at this time he continues to receive IV antibiotics and pain management. His diet was increase today surgical consult continues. Anticipate he will be discharged in the next 48 hours if he continues to improve per provider. A: Drew is a 63 year old male admitted with Diverticulitis. P: No change in status today, Drew will be discharged when medically ready with no additional services. He will follow up with primary care and surgical services as directed at time of discharge.
--- NOTE | 2019-03-26 14:50 | DSE_ITS ---
Date of service: 03/26/19 Time of Service: 14:42 DS: Diagnosis Discharge Diagnosis (1) Diverticulitis: Status: Acute (2) Chronic pain: Status: Chronic (3) Pulmonary sarcoidosis: Status: Chronic (4) Post traumatic stress disorder: Status: Chronic (5) Galena-Schlatter's disease: Status: Chronic (6) Essential hypertension: Status: Chronic Discharge Plan Disposition Patient Disposition: HOME Condition: Stable Discharge Details Reason For Visit: DIVERTICULITIS Admit Date/Time: 03/24/19 19:55 Admit Provider: Florencio Mayo Attending Provider: Florencio Mayo Primary Care Provider: Armond Hyatt Hospital Course Hospital Course: Mr Goel is a 63 year old male with PMHx of chronic back pain, hypertension, hyperlipidemia, admitted to [facility] on 03/24/19 for acute uncomplicated diverticulitis of the distal descending and sigmoid colon. The patient was put on bowel rest and initiated on IVF, ciprofloxacin and metronidazole with substantial improvement of symptoms within 48 hours. He tolerated a soft diet. He was seen by general surgery in consultation and is felt to be safe to be discharged home on a soft low fiber diet with a 10 day course of antibiotics. He will need to follow up with general surgery for outpatient colonoscopy. He will be given a 3 day supply of oxycodone for pain due to diverticulitis. VPMS was checked prior to prescribing narcotics. 40 minutes were spent on care for patient as well as completion of discharge summary on day of discharge. Home Meds and New Rx's Prescriptions: New oxycodone 5 mg Tablet 5 - 10 mg PO Q4H PRN PRN (Reason: abdominal pain/diverticulitis) Qty: 36 RF: 0 metronidazole 500 mg tablet 500 mg PO QID Qty: 40 RF: 0 ciprofloxacin HCl [Cipro] 250 mg tablet 250 mg PO BID Qty: 20 RF: 0 Continued duloxetine 60 mg capsule,delayed release(DR/EC) 60 mg PO DAILY Qty: 90 RF: 3 magnesium oxide 500 mg capsule 500 mg PO DAILY RF: 0 trazodone 100 mg tablet 50 - 100 mg PO HS Qty: 90 RF: 4 ranitidine HCl 150 mg tablet 150 mg PO QHS Qty: 90 RF: 3 lisinopril 10 mg tablet 10 mg PO DAILY Qty: 90 RF: 3 sennosides-docusate sodium [Senna with Docusate Sodium] 8.6-50 mg tablet 1 tab PO BID PRN (Reason: constipation) Qty: 60 RF: 2 pantoprazole 40 mg tablet,delayed release (DR/EC) 40 mg PO DAILY PRN (Reason: gerd) Qty: 90 RF: 3 terbinafine HCl 250 mg tablet 250 mg PO DAILY Qty: 30 RF: 0 fluticasone propionate 50 mcg/actuation spray,suspension 1 spray NS BID Qty: 3 RF: 3 cyanocobalamin (vitamin B-12) [Vitamin B-12] 500 MCG tablet 500 mcg PO DAILY RF: 0 cholecalciferol (vitamin D3) 1,000 UNIT capsule 1,000 unit PO DAILY RF: 0 One Daily For Men 50+ Advanced 1 EACH tablet 1 ea PO DAILY RF: 0 glucosamine sulfate 2KCl 1,000 MG tablet 1 tab PO DAILY RF: 0 calcium carbonate [Calcium 500] 500 MG tablet 1,000 mg PO three times a week RF: 0 tamsulosin 0.4 mg capsule 0.4 mg PO DAILY Qty: 90 RF: 4 oxycodone 5 mg tablet 5 mg PO q 6 h MDD 1 tab PRN (Reason: chronic pain) Qty: 30 RF: 0 aspirin [Aspir-81] 81 MG tablet,delayed release (DR/EC) 81 mg PO DAILY RF: 0 Discharge Instructions Instructions: Ciprofloxacin (By mouth), Metronidazole (By mouth), Diverticulitis (DC), Diverticulitis Diet (DC) Additional Instructions: Finish your antibiotics as prescribed. Return to the hospital with any fever, bleeding, chest pain, or shortness of breath. Do not drink while taking metronidazole (flagyl). Follow up with your PCP in 3-5 days, if possible, and with general surgery in 2 weeks. Referrals: Makenzie Roque MD [ [facility] STAFF PHYSICIAN] - Armond Hyatt [Primary Care Provider] - Activity:: Activity as Tolerated Equipment/Supplies:: No Equipment Needed Diet:: soft low fiber Discharge Orders Discharge Orders: Discharge Order (Routine); Ordered 03/26/19 Ordered By: Ayesha Barth Exam Narrative Exam Narrative: General: very pleasant middle-aged male, A&Ox3, NAD HEENT: EOMI, MMM Heart: RRR, no m/r/g Lungs: CTAB Abdomen: soft, tender in LLQ, + BS, better today Extremities: No e/c/c BLE's DS: Data Vitals/I&O Vitals and I&O: Vital Signs Temperature 36.7 C 03/26/19 07:17 Temperature Source Tympanic 03/26/19 07:17 Pulse 81 03/26/19 07:17 Pulse Rhythm Regular 03/26/19 09:25 Respiratory Rate 20 03/26/19 07:17 Respiratory Effort 03/26/19 09:25 Respiratory Depth Normal 03/26/19 09:25 Respiratory Pattern Normal 03/26/19 09:25 Blood Pressure 117/77 03/26/19 07:17 Blood Pressure Mean 83 03/24/19 20:13 Blood Pressure Position Sitting 03/24/19 18:11 Pulse Oximetry 99 03/26/19 07:17 Oxygen Delivery Method Room Air 03/26/19 07:17 Oxygen Flow Rate 0 03/26/19 07:17 Pain Level 5 03/26/19 07:17 Intake & Output 03/25/19 03/26/19 03/26/19 23:59 11:59 23:59 Intake Total 1590.417 / 2990.417 1150.000 / 1390.000 240 / 1390.000 Balance 1590.417 / 2990.417 1150.000 / 1390.000 240 / 1390.000 Weight 94.4 kg Intake: IV 1590.417 / 2990.417 910.000 / 910.000 Oral 240 / 480 240 / 480 Other: Urine Color Yellow Urine Appearance Clear Clear Urine Odor Normal Voiding Methods Toilet Completed studies during hospitalization [Text1]: CT abdomen/pelvis 03/24/19: Findings consistent with diverticulitis involving the distal descending and sigmoid colon. There is no evidence of an abscess or perforation. Labs on day of discharge: Labs from last 24 hours 03/26/19 03/26/19 06:58 06:58 WBC 6.26 RBC 3.86 L Hgb 12.6 L Hct 37.5 L MCV 97.2 H MCH 32.6 MCHC 33.6 RDW 12.1 Plt Count 196 MPV 9.5 Immature Gran % 0.0 Neutrophils % 67.2 Lymphocytes % 15.5 Monocytes % 16.1 Eosinophils % 1.0 Basophils % 0.2 Absolute Neutrophils 4.21 Absolute Lymphocytes 0.97 L Absolute Monocytes 1.01 H Absolute Eosinophils 0.06 Absolute Basophils 0.01 Sodium 141 Potassium 4.3 Chloride 104 Carbon Dioxide 31.5 Anion Gap 5.5 BUN 8 Creatinine 0.86 Estimated GFR/1.73 m2 >= 60.00 Glucose 153 H Calcium 8.2 L Magnesium 2.0 [facility] Medical History Tick bite (Acute) Back pain (Chronic) Elevated blood-pressure reading without diagnosis of hypertension (Acute 08/25/07) Chronic lower back pain (Acute) Vitamin D deficiency (Acute 03/07/15) Urgency of urination (Acute 03/13/16) Pulmonary sarcoidosis (Chronic 03/07/15) Post traumatic stress disorder (Chronic) Nigel-Schlatter's disease (Chronic) Lumbago (Acute) Insomnia (Acute 03/07/15) Injury of head (Acute 08/22/86) Impaired fasting glucose (Acute) Hyperlipemia (Acute 03/07/15) Hepatitis A (Acute 03/07/15) Essential hypertension (Chronic) Gastroesophageal reflux disease (Chronic 03/07/15) Erectile dysfunction (Acute 03/07/15) Depression (Acute) Degenerative arthritis (Acute) Colon polyp (Acute 08/22/07) Asthma (Acute 01/17/09) Acid indigestion (Acute) Surgical History History of knee surgery (Acute) History of umbilical hernia repair (Acute) Status post cervical spinal arthrodesis (Acute) Status post lobectomy of lung (Acute) Status post tonsillectomy (Acute) KNEE SURGERY Lobectomy (~1982) Repair of umbilical hernia Spinal Fusion (~2005) Tonsillectomy Family History Father Diabetes Heart disease Grandmother Leukemia Brother Epilepsy Diabetes Mother No problems noted. Social History Smoking/Tobacco Use Status: Current-Occasional Tobacco Type: cigarettes Alcohol Intake: current Alcohol Intake frequency: 3 or more drinks per day Alcohol type: beer and hard liquor Drug use: Never Do you feel safe at home: Yes Do you feel safe in your relationship?: Yes
[2019-03-26 15:45] VITALS: BP 132/77; PULSE 84; RESP 18; TEMP 36.7; O2SAT 98
== END 2019-03-26 16:03 | disposition home or self-care (01) | DRG 392 ==
LOC: ER 18:19 → MS 20:35
PROVIDERS: Internal Medicine; Admitting Provider General Practice; Emergency Provider Student in an Organized Health Care Education/Training Program; PCP Family Medicine; Visit Provider General Practice
DX: K57.32 Diverticulitis of large intestine without perforation or abscess without bleeding (principal); G89.29 Other chronic pain; D86.0 Sarcoidosis of lung; F43.10 Post-traumatic stress disorder, unspecified; X58.XXXS Exposure to other specified factors, sequela; I10 Essential (primary) hypertension; E78.5 Hyperlipidemia, unspecified
CPT/HCPCS: 36415; 80048; 80053; 96361; 96365; 96375; 99222; 99231; 99232; 99239; 99253; 99285; J1650; 74177; 81003; 83735; 85025; 85610; 85730; J0744; J2270; J2405; J3490

== ENCOUNTER → 2019-04-07 13:56 | Outpatient (BNVA) | payer MEDICARE, SELFPAY | PROVIDERS: PCP Family Medicine; Referring Provider Family Medicine; Visit Provider Surgery | DX: K57.92 Diverticulitis of intestine, part unspecified, without perforation or abscess without bleeding (principal); Z48.89 Encounter for other specified surgical aftercare; I10 Essential (primary) hypertension | CPT/HCPCS: 99213 ==

== ENCOUNTER 2019-04-10 09:00 | Outpatient (CLI) | payer MEDICARE, SELFPAY ==
[2019-04-10 10:43] LABS: Hemoglobin A1C 5.4 % (4.5-6.2)
== END 2019-04-10 09:20 ==
PROVIDERS: PCP Family Medicine; Visit Provider Family Medicine
DX: R73.01 Impaired fasting glucose (principal)
CPT/HCPCS: 36415; 83036

== ENCOUNTER 2019-05-05 07:16 | Day surgery (SDC) | payer MEDICARE, SELFPAY ==
--- NOTE | 2019-05-05 06:40 | W.COLOREPORT ---
Date of service: 05/05/19 Time of Service: Colonoscopy Report Date of procedure: 05/05/19 Pre-op diagnosis general: Diverticulitis Post-op diagnosis procedure note: other (Diverticulosis and multiple polyps) Procedure: Colonoscopy with polypectomy Surgeon: Makenzie Roque Anesthesia proc note operative: other (general/ ASA 2/ Padma Figueroa CRNA) Estimated blood loss (mL): 5 Pathology: other (Transverse, Proximal descending, mid-descending, sigmoid and rectal polyps) Complications: None Disposition: same day Indications: Mr. Goel is a pleasant 63 year old male who was admitted to the hospital with a bout of diverticulitis and treated. He was then followed up in the office and was doing well after 2 weeks of antibiotics. Patient is here today for a colonoscopy. Risks, benefits and complications have been reviewed. Complications include but are not limited to bleeding, pain, perforation, missed small lesion/polyp, sore throat, aspiration and adverse reaction to the medications. Questions were entertained and answered to their satisfaction and they wished to proceed. No guarantees were given or implied. Prep: Miralax/Dulcolax Procedure Start Time: Procedure End Time: 10:48 Retraction Time: 41 minutes Findings: Moderate Diverticulosis of the descending and sigmoid colon Multiple polyps Procedure Description: After informed consent was obtained the patient was taken to the procedure room and placed in a left decubitous position. Monitors were applied and a time out was done. The patients name, date of , procedure, allergies to medications and metal in their body was reviewed. The patient was then sedated. Once sedated and comfortable a rectal exam was done. External exam was normal. Internal exam revealed a normal sphincter tone and no palpable masses. The prostate felt smooth. The scope was then introduced and retro-flexed. No internal hemorrhoids were identified. The scope was then advanced to the cecum without difficulty. The TI and appendiceal orifice were identified. The prep was adequate. The scope was then slowly retracted over 41 minutes back into the rectum. Polyps were removed with cold forceps in the transverse colon, proximal descending, and mid descending colon and with a hot snare in the proximal sigmoid colon and rectum. The scope was removed and the patient was woken up and taken back to Same day surgery in stable condition. The patient tolerated the procedure well and there were no immediate complications. Follow up: The patient should follow up in 3 years unless they develop changes in bowel habits or other new gastrointestinal complaints.
--- NOTE | 2019-05-05 06:41 | W.PM.DSUDISC ---
Discharge Plan Disposition Patient Disposition: HOME Condition: Good Discharge Details Reason For Visit: Colonoscopy Attending Provider: Makenzie Roque Primary Care Provider: Armond Hyatt Home Meds and New Rx's Prescriptions: Continued duloxetine 60 mg capsule,delayed release(DR/EC) 60 mg PO DAILY Qty: 90 RF: 3 magnesium oxide 500 mg capsule 500 mg PO DAILY RF: 0 trazodone 100 mg tablet 50 - 100 mg PO HS Qty: 90 RF: 4 ranitidine HCl 150 mg tablet 150 mg PO QHS Qty: 90 RF: 3 lisinopril 10 mg tablet 10 mg PO DAILY Qty: 90 RF: 3 vitamin A 8,000 unit capsule 500 unit PO BID RF: 0 testosterone cypionate [Depo-Testosterone] 200 mg/mL oil 100 mg IM Q2W Qty: 1 RF: 5 pantoprazole 40 mg tablet,delayed release (DR/EC) 40 mg PO DAILY PRN (Reason: gerd) Qty: 90 RF: 3 fluticasone propionate 50 mcg/actuation spray,suspension 1 spray NS BID Qty: 3 RF: 3 cyanocobalamin (vitamin B-12) [Vitamin B-12] 500 MCG tablet 500 mcg PO DAILY RF: 0 cholecalciferol (vitamin D3) 1,000 UNIT capsule 1,000 unit PO DAILY RF: 0 One Daily For Men 50+ Advanced 1 EACH tablet 1 ea PO DAILY RF: 0 glucosamine sulfate 2KCl 1,000 MG tablet 1 tab PO DAILY RF: 0 calcium carbonate [Calcium 500] 500 MG tablet 1,000 mg PO three times a week RF: 0 tamsulosin 0.4 mg capsule 0.4 mg PO DAILY Qty: 90 RF: 4 oxycodone 5 mg tablet 5 mg PO q 6 h MDD 1 tab PRN (Reason: chronic pain) Qty: 30 RF: 0 (DME) BD Luer-Moy Syringe 3 mL 21 gauge x 1 syringe See Rx Instructions .ROUTE .MEDSUPPLY Qty: 25 RF: 0 aspirin [Aspir-81] 81 MG tablet,delayed release (DR/EC) 81 mg PO DAILY RF: 0 Discontinued bisacodyl [Dulcolax (bisacodyl)] 5 mg tablet,delayed release (DR/EC) 5 mg PO ONCE Qty: 4 RF: 0 polyethylene glycol 3350 17 gram powder in packet 255 g PO DAILY Qty: 15 RF: 0 Discharge Instructions Instructions: Colonoscopy (GEN), Diverticulosis (ED), Colorectal Polyps (GEN) Additional Instructions: Findings: 5 polyps Moderate Diverticulosis Follow up: 3-5 years Please call if you develop: fevers >101.5 Nausea or Vomiting Abdominal pain that is not transient DAY SURGERY UNIT POST COLONOSCOPY INSTRUCTIONS 1. Because there will be medication in your system for the next 24 hours, you may feel a little sleepy. Your coordination will be affected. Therefore: a. Do not drive or operate dangerous equipment for 24 hours. b. Do not drink alcohol beverages for 24 hours (not even beer). c. Plan to go home and rest for the day. 2. Generally there are no restrictions on your activity after a day or so has gone by, but you may feel a bit fatigued for a few days. 3 After you arrive home you may have a light meal and return to a normal diet as you can tolerate it without feeling sick to your stomach. 4. After surgery, you may feel pain or discomfort. This should be only transient, but if it persists please contact your doctor. 5. If there are any questions regarding the findings of your procedure, please feel free to contact your doctor. 6. If you are unable to contact your doctor with a problem, contact the hospital at [phone]. 7. Continue all your regular medications unless directed otherwise. I understand the above instructions and have no questions. Signature of Patient or Responsible Adult Escort Date/Time Name of Responsible Adult Escort Signature of Nurse Date/Time Activity:: Activity as Tolerated Diet:: High Fiber diet Discharge Orders Discharge Orders: Discharge Order (Routine); Ordered 05/05/19 Ordered By: Makenzie Roque DS: Diagnosis Discharge Diagnosis (1) S/P colonoscopy: (2) Colorectal polyps: (3) Diverticulosis:
[2019-05-05 07:40] VITALS: BP 125/94; PULSE 77; RESP 16; TEMP 36.1; O2SAT 97
[2019-05-05] MEDS: Lactated Ringers 1,000 ML 80 ML IV ×2 (07:51→10:35)
--- NOTE | 2019-05-05 10:13 | BOWEL_PTH ---
PATIENT: MACI MARROQUIN LOC: [facility] U#:[id number] AGE/SX: 63/M ROOM: RE05/05/[address]: Makenzie Roque MD : 1955 BED: DIS: 05/05/2019 SPEC #: [id number] RECD: 05/05/19 12:35 STATUS: HANSA REQ #: [id number] KAMRAN: 05/05/19 10:[address]: Makenzie Roque DEPT: Surgical Specimen RECD BY: Leigh Ann Morin ENTERED: 05/05/19 12:37 SP TYPE: Bowel OTHR DR: Armond Hyatt MD Tissues: 1 - BIOPSY BOWEL 2 - BIOPSY BOWEL 3 - BIOPSY BOWEL 4 - BIOPSY BOWEL 5 - BIOPSY BOWEL Procedures: GROSS AND MICRO LEVEL 4 Comments: [id number]
[2019-05-05 11:25] VITALS: BP 112/75; PULSE 68; RESP 18; TEMP 36.2; O2SAT 98
[2019-05-05 11:42] VITALS: BP 112/75; PULSE 68; RESP 18; TEMP 36.2; O2SAT 98
== END 2019-05-05 11:47 | disposition home or self-care (01) ==
LOC: SUR 07:16
PROVIDERS: PCP Family Medicine; Visit Provider Surgery
PROC: 0DJD8ZZ Inspection of Lower Intestinal Tract, Via Natural or Artificial Opening Endoscopic (ICD-10-PCS; CPT 45378; principal; 2019-05-05 09:00)
DX: Z09 Encounter for follow-up examination after completed treatment for conditions other than malignant neoplasm (principal); Z87.19 Personal history of other diseases of the digestive system; K57.30 Diverticulosis of large intestine without perforation or abscess without bleeding; D12.3 Benign neoplasm of transverse colon; D12.4 Benign neoplasm of descending colon; D12.5 Benign neoplasm of sigmoid colon; D12.8 Benign neoplasm of rectum; I10 Essential (primary) hypertension; K21.9 Gastro-esophageal reflux disease without esophagitis; Z72.0 Tobacco use
CPT/HCPCS: 45385; 45380; 88305

== ENCOUNTER 2019-07-20 01:52 | Outpatient (CLI) | payer MEDICARE, SELFPAY ==
--- NOTE | 2019-07-20 10:55 | DI.RAD_ITS ---
EXAM: XR HIP LT COMPLETE AP PELVIS INDICATION: LEFT GROIN PAIN R10.32 LLQ PAIN. COMPARISON: No exams were available for comparison TECHNIQUE: 2D digital imaging was performed. FINDINGS: There are mild degenerative changes seen in the hips bilaterally. The bones are normally mineralized . No acute fracture or dislocation is present. There are degenerative changes seen at the sacroilia c joints. The symphysis pubis appears intact. The soft tissues are unremarkable. IMPRESSION: Mild degenerative changes of the left hip.
--- NOTE | 2019-07-20 10:55 | DI.US_ITS ---
EXAM: US HERNIA CLINICAL HISTORY: left groin pain R10.32 LLQ PAIN TECHNIQUE: Ultrasound performed using standard protocol. COMPARISON: No exams were available for comparison FINDINGS: There is no evidence of a left inguinal hernia sonographically. No suspicious cystic or solid masses are seen sonographically. IMPRESSION: No evidence of a left inguinal hernia sonographically.
== END 2019-07-20 02:12 ==
PROVIDERS: PCP Family Medicine; Visit Provider Family Medicine
DX: R10.32 Left lower quadrant pain (principal); M16.0 Bilateral primary osteoarthritis of hip; M53.3 Sacrococcygeal disorders, not elsewhere classified
CPT/HCPCS: 76857; 73502

== ENCOUNTER 2019-07-26 10:02 | Emergency (ER) | payer MEDICARE, SELFPAY ==
[2019-07-26 10:08] VITALS: BP 152/93; PULSE 80; RESP 16; TEMP 36.1; O2SAT 99
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
== END 2019-07-26 10:38 | disposition home or self-care (01) ==
PROVIDERS: Emergency Provider Emergency Medicine; PCP Family Medicine
DX: S30.861A Insect bite (nonvenomous) of abdominal wall, initial encounter (principal); W57.XXXA Bitten or stung by nonvenomous insect and other nonvenomous arthropods, initial encounter; I10 Essential (primary) hypertension
CPT/HCPCS: 99283

== ENCOUNTER → 2019-08-11 08:35 | Outpatient (BNVA) | payer MEDICARE, SELFPAY | PROVIDERS: PCP Family Medicine; Referring Provider Family Medicine; Visit Provider Nurse Practitioner Gerontology | DX: R69 Illness, unspecified (principal) ==

== ENCOUNTER 2019-08-11 09:32 | Outpatient (CLI) | payer MEDICARE, SELFPAY ==
--- NOTE | 2019-08-11 12:25 | DI.US_ITS ---
EXAM: US SCROTUM CLINICAL HISTORY: scrotal/groin pain with lifting + ? epididymis cyst R10.32, LLQ PAIN, N50.82 TECHNIQUE: Ultrasound performed using standard protocol. COMPARISON: ABD PELVIS WITH CONTRAST from 04/12/2017 CT ABDOMEN PELVIS W from 03/24/2019 FINDINGS: The right testicle measures 3.3 x 2.3 x 2.6 cm. The left testicle measures 3.0 x 1.8 x 2.6 cm. The echotexture is homogeneous. There is normal blood flow bilaterally. There are small bilateral hydro max. Small spermatoceles are seen in the epididymal heads bilaterally, measuring 4 millimeters in size. There is a freely mobile rounded shadowing structure within the left scrotal sac which is mobi le and may represent a scrotal hussain. Normal appearing groin lymph nodes are seen. No hernia was dem onstrated. IMPRESSION: Small bilateral hydroceles. A rounded echogenic structure is seen within the left scrotal sac which i s mobile, consistent with a scrotal hussain.
[2019-08-12 15:11] LABS: PSA, Screening 1.8 ng/mL (0.0-4.5)
== END 2019-08-11 09:52 ==
PROVIDERS: PCP Family Medicine; Visit Provider Nurse Practitioner Gerontology
DX: N50.82 Scrotal pain (principal); R10.32 Left lower quadrant pain; R39.15 Urgency of urination; N40.1 Benign prostatic hyperplasia with lower urinary tract symptoms; N43.3 Hydrocele, unspecified; N50.89 Other specified disorders of the male genital organs
CPT/HCPCS: 36415; 81003; 84153; 99204; 99215; 76870

== ENCOUNTER 2019-08-14 10:34 | Outpatient (CLI) | payer MEDICARE, SELFPAY ==
--- NOTE | 2019-08-14 11:15 | DI.RAD_ITS ---
EXAM: XR CHEST 2V PA LATERAL INDICATION: COUGH, R05, H/O SARCOIDOSIS, Z86.2. COMPARISON: CHEST 2 VIEWS PA,LAT from 12/19/2015 TECHNIQUE: 2D digital imaging was performed. FINDINGS: Heart size and pulmonary vasculature are stable and within normal limits. The lungs are clear. No p leural effusion or pneumothorax is identified. Degenerative changes are seen in the spine. Anterior spinal fusion is seen in the lower cervical spine. IMPRESSION: No acute pulmonary process.
[2019-08-14 11:38] LABS: HCT 40.5 % (40.0-50.0); HGB 13.4 g/dL (13.5-17.5); Mean Corp. HGB Concentration 33.1 g/dL (32.0-36.0); Mean Corpuscular Hemoglobin 28.9 pg (27.0-33.0); Mean Corpuscular Volume 87.5 fL (80-95); Mean Platelet Volume 9.5 fL (8.0-11.0); Platelet Count 371 x1000/uL (130-400); RBC 4.63 m/cumm (4.50-6.00); RBC Distribution Width 13.3 % (11.8-14.1); White Blood Cell Count 3.71 k/cumm (4.4-10.8)
[2019-08-14 12:55] LABS: Alkaline Phosphatase 60 U/L (46-116); Calcium 8.9 mg/dL (8.5-10.1)
[2019-08-14 13:01] LABS: C-Reactive Protein < 0.05 mg/dL (0.0-0.3)
[2019-08-14 13:46] LABS: ESR 6 mm/hr (1-20)
[2019-08-17 11:51] LABS: Lyme Ab w Rflx to Lyme Confirm Negative (Negative)
== END 2019-08-14 10:54 ==
PROVIDERS: PCP Family Medicine; Visit Provider Nurse Practitioner
DX: R05 Cough (principal); Z87.898 Personal history of other specified conditions; R11.0 Nausea; W57.XXXA Bitten or stung by nonvenomous insect and other nonvenomous arthropods, initial encounter; T14.8XXA Other injury of unspecified body region, initial encounter
CPT/HCPCS: 36415; 85027; 85652; 71046; 82310; 84075; 86140; 86618

== ENCOUNTER → 2019-08-24 14:14 | Outpatient (BNVA) | payer MEDICARE, SELFPAY | PROVIDERS: PCP Family Medicine; Referring Provider Family Medicine; Visit Provider Surgery | DX: K21.9 Gastro-esophageal reflux disease without esophagitis (principal) | CPT/HCPCS: 99214 ==

== ENCOUNTER → 2019-08-25 14:41 | Outpatient (BNVA) | payer MEDICARE, SELFPAY | PROVIDERS: PCP Family Medicine; Referring Provider Family Medicine; Visit Provider Nurse Practitioner Gerontology | DX: N40.1 Benign prostatic hyperplasia with lower urinary tract symptoms (principal); N50.82 Scrotal pain; R39.198 Other difficulties with micturition | CPT/HCPCS: 99213 ==

== ENCOUNTER 2019-08-27 08:49 | Day surgery (SDC) | payer MEDICARE, SELFPAY ==
[2019-08-27 09:05] VITALS: BP 140/94; PULSE 86; RESP 16; TEMP 36.1; O2SAT 98
[2019-08-27] MEDS: Lactated Ringers 1,000 ML 80 ML IV (09:49)
--- NOTE | 2019-08-27 10:13 | W.PM.DSUDISC ---
Discharge Plan Disposition Patient Disposition: HOME Condition: Good Discharge Details Reason For Visit: EGD Attending Provider: Allie Islas Primary Care Provider: Armond Hyatt Home Meds and New Rx's Prescriptions: Continued duloxetine 60 mg capsule,delayed release(DR/EC) 60 mg PO DAILY Qty: 90 RF: 3 trazodone 100 mg tablet 50 - 100 mg PO HS Qty: 90 RF: 4 ranitidine HCl 150 mg tablet 150 mg PO QHS Qty: 90 RF: 3 magnesium oxide 500 mg capsule 600 mg PO BID RF: 0 lisinopril 10 mg tablet 10 mg PO DAILY Qty: 90 RF: 3 tamsulosin 0.4 mg capsule 0.8 mg PO DAILY Qty: 180 RF: 4 fluticasone propionate 50 mcg/actuation spray,suspension 1 spray NS BID RF: 0 pantoprazole 40 mg tablet,delayed release (DR/EC) 40 mg PO DAILY PRN (Reason: gerd) Qty: 90 RF: 3 cyanocobalamin (vitamin B-12) [Vitamin B-12] 500 MCG tablet 500 mcg PO DAILY RF: 0 cholecalciferol (vitamin D3) 1,000 UNIT capsule 1,000 unit PO DAILY RF: 0 One Daily For Men 50+ Advanced 1 EACH tablet 1 ea PO DAILY RF: 0 glucosamine sulfate 2KCl 1,000 MG tablet 1 tab PO DAILY RF: 0 calcium carbonate [Calcium 500] 500 MG tablet 1,000 mg PO three times a week RF: 0 (DME) BD Luer-Moy Syringe 3 mL 21 gauge x 1 syringe See Rx Instructions .ROUTE .MEDSUPPLY Qty: 25 RF: 0 duloxetine 60 mg capsule,delayed release(DR/EC) 60 mg PO DAILY Qty: 90 RF: 3 testosterone cypionate [Depo-Testosterone] 200 mg/mL oil 100 mg IM Q2W Qty: 1 RF: 5 oxycodone 5 mg tablet 5 mg PO q 6 h MDD 1 tab PRN (Reason: chronic pain) Qty: 30 RF: 0 aspirin [Aspir-81] 81 MG tablet,delayed release (DR/EC) 81 mg PO DAILY RF: 0 Discharge Instructions Additional Instructions: Findings: Your stomach showed mild inflammation which may be related to taking aspirin. Biopsies were performed - my office will contact you with biopsy results. The esophagus showed possible Barretts change. If present a follow up endoscopy may be needed in 3 years. No inflammation was present. Follow up: Please call if you develop: fevers >101.5 Nausea or Vomiting Abdominal pain that is not transient DAY SURGERY UNIT POST EGD INSTRUCTIONS 1. Because there will be medication in your system for the next 24 hours, you may feel a little sleepy. Your coordination will be affected. Therefore: a. Do not drive or operate dangerous equipment for 24 hours. b. Do not drink alcohol beverages for 24 hours (not even beer). c. Plan to go home and rest for the day. 2. Generally there are no restrictions on your activity after a day or so has gone by, but you may feel a bit fatigued for a few days. 3 After you arrive home you may have a light meal and return to a normal diet as you can tolerate it without feeling sick to your stomach. 4. After surgery, you may feel pain or discomfort. This should be only transient, but if it persists please contact your doctor. 5. If there are any questions regarding the findings of your procedure, please feel free to contact your doctor. 6. If you are unable to contact your doctor with a problem, contact the hospital at [phone]. 7. Continue all your regular medications unless directed otherwise. I understand the above instructions and have no questions. Signature of Patient or Responsible Adult Escort Date/Time Name of Responsible Adult Escort Signature of Nurse Date/Time Activity:: Activity as Tolerated Diet:: As Tolerated Discharge Orders Discharge Orders: Discharge Order (Routine); Ordered 08/27/19 Ordered By: Allie Islas DS: Diagnosis Discharge Diagnosis (1) Mild chronic gastritis: Status: Acute
--- NOTE | 2019-08-27 10:25 | STOM_PTH ---
PATIENT: MACI MARROQUIN LOC: [facility] U#:[id number] AGE/SX: 63/M ROOM: RE08/27/[address]: Allie Islas MD : [id number] BED: DIS: 08/27/2019 SPEC #: [id number] RECD: 08/27/19 13:01 STATUS: HANSA RE #: [id number] KAMRAN: 08/27/19 10:[address]: Allie Islas DEPT: Surgical Specimen RECD BY: Leigh Ann Morin ENTERED: 08/27/19 13:02 SP TYPE: STOMACH OTHR DR: Armond Hyatt MD Tissues: 1 - STOMACH BIOPSY 2 - ESOPHAGUS BIOPSY Procedures: GROSS AND MICRO LEVEL 4 Comments: [id number]
[2019-08-27 11:12] VITALS: BP 141/90; PULSE 77; RESP 16; TEMP 36.4
--- NOTE | 2019-08-27 14:06 | ENDO_ITS ---
AUGUST 27, 2019 PREOPERATIVE DIAGNOSIS: Reflux. POSTOPERATIVE DIAGNOSIS: 1) Possible Dowling's esophagus. 2) Mild antral gastritis. OPERATION: Esophagogastroduodenoscopy with distal esophageal biopsy and gastric biopsy. ANESTHESIA: General. INDICATIONS FOR PROCEDURE: This is a 63-year-old man who reports significant epigastric burning and a feeling of fullness in his throat. He has had a cervical fusion. PROCEDURE: He was placed in the left lateral decubitus position. Propofol was titrated to sedation. The scope was advanced into his esophagus under direct visualization and down into the stomach and du odenum. There was duodenitis nor ulcers noted. The stomach itself revealed some mild antral gastrit is. It is not clear if this is significant enough to account for his symptoms. This may be related to his daily aspirin use. Biopsies were taken from the gastric antrum. Retroflexed view of the fundus of the curvature was nor mal. The gastroesophageal junction was carefully inspected and showed no masses, inflammation or str ictures. There was a small circular area of gastri epithelium just proximal to the gastroesophageal junction that was biopsied to evaluate for Dowling's esophagus. If present he will need a follow-up esophagogastroduodenoscopy in three years. The air was suctioned from the stomach and the scope was fully withdrawn. No other esophageal lesion s were found. We will try a 2-week course of Carafate to see if this improves his symptoms. He was also advised to temporarily stop his supplements including magnesium and multivitamins to see if thes e may be causing his symptoms.
== END 2019-08-27 11:32 | disposition home or self-care (01) ==
PROVIDERS: PCP Family Medicine; Visit Provider Surgery
PROC: 0DJ68ZZ Inspection of Stomach, Via Natural or Artificial Opening Endoscopic (ICD-10-PCS; CPT 43235; principal; 2019-08-27 13:00)
DX: K21.9 Gastro-esophageal reflux disease without esophagitis (principal); K31.9 Disease of stomach and duodenum, unspecified; K29.70 Gastritis, unspecified, without bleeding; I10 Essential (primary) hypertension
CPT/HCPCS: 43239; 88305

== ENCOUNTER 2019-12-24 02:23 | Outpatient (CLI) | payer MEDICARE, SELFPAY ==
[2019-12-24 13:05] LABS: Absolute Basophil Count 0.02 k/cumm (0.0-0.2); Absolute Lymphocyte Count 1.49 k/cumm (1.2-3.4); Absolute Monocyte Count 0.77 k/cumm (0.11-0.7); Absolute Neutrophil Count 1.81 k/cumm (1.2-6.7); Basophils % 0.5; HCT 40.7 % (40.0-50.0); HGB 13.6 g/dL (13.5-17.5); Lymphocytes % 36.4; Mean Corp. HGB Concentration 33.4 g/dL (32.0-36.0); Mean Corpuscular Hemoglobin 28.8 pg (27.0-33.0); Monocytes % 18.8; Neutrophils % 44.3; Platelet Count 303 x1000/uL (130-400); RBC 4.73 m/cumm (4.50-6.00); RBC Distribution Width 15.9 % (11.8-14.1); White Blood Cell Count 4.09 k/cumm (4.4-10.8)
[2019-12-24 13:54] LABS: C-Reactive Protein 0.08 mg/dL (0.0-0.3)
== END 2019-12-24 02:43 ==
PROVIDERS: PCP Family Medicine; Visit Provider Surgery
DX: R10.32 Left lower quadrant pain (principal); K57.92 Diverticulitis of intestine, part unspecified, without perforation or abscess without bleeding
CPT/HCPCS: 36415; 85025; 86140

== ENCOUNTER 2020-01-25 09:11 | Emergency (ER) | payer MEDICARE, SELFPAY ==
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
[2020-01-25 09:15] VITALS: BP 167/86; PULSE 101; RESP 22; TEMP 36.7; O2SAT 98
--- NOTE | 2020-01-25 09:30 | DI.RAD_ITS ---
EXAM: XR KNEE RT 4V AP,LAT,ANTHONY,PAT CLINICAL HISTORY: assess for fracture/effusion TECHNIQUE: 2D digital imaging was performed. COMPARISON: No exams were available for comparison FINDINGS: There is no evidence of fracture. There is anterior soft tissue swelling. A large joint effusion i s present. The joint spaces are well maintained. There is mild periarticular spurring. IMPRESSION: Large joint effusion. No evidence of fracture.
[2020-01-25] MEDS: Ibuprofen 600 MG TAB PO (09:41)
== END 2020-01-25 10:39 | disposition home or self-care (01) ==
PROVIDERS: Emergency Provider Physician Assistant; PCP Family Medicine
DX: M25.461 Effusion, right knee (principal); X50.9XXA Other and unspecified overexertion or strenuous movements or postures, initial encounter; I10 Essential (primary) hypertension
CPT/HCPCS: 99283; 73564

== ENCOUNTER 2020-05-02 01:56 | Outpatient (CLI) | payer MEDICARE, SELFPAY ==
--- NOTE | 2020-05-02 08:00 | DI.RAD_ITS ---
EXAM: XR CHEST 2V PA LATERAL CLINICAL HISTORY: sob, wheeze; hx of sarcoid (remotely diagnosed),R05 TECHNIQUE: 2D digital imaging was performed. COMPARISON: CR CHEST 2 VIEWS PA,LAT from 12/19/2015 CR XR CHEST 2V PA LATERAL from 08/14/2019 FINDINGS: MEDIASTINUM: Normal. HEART: Normal. PULMONARY VASCULATURE: Normal. LUNGS: Clear. PLEURAL SPACE: No pleural effusion or pneumothorax. BONE:Within normal limits for the patient's age. OTHER FINDINGS:Findings of a prior anterior cervical disc fusion. IMPRESSION: No acute pulmonary findings. DATA REPOSITORY: RADIATION DOSE DELIVERED:
== END 2020-05-02 02:16 ==
PROVIDERS: PCP Family Medicine; Visit Provider Family Medicine
DX: R05 Cough (principal); R06.02 Shortness of breath; R06.2 Wheezing
CPT/HCPCS: 71046